=== PATIENT | male | born 1970 | race Caucasian/White ===

== ENCOUNTER 2020-07-28 15:28 | Inpatient (IN) | payer OTHER ==
[~2020-07-28] VITALS: Ht 172.7 cm; Wt 86.2 kg
--- NOTE | ~2020-07-28 | CON ---
[address] [address] CONSULTATION Name: DAVID ALBARRAN Room: [address] IN .R.#: [id number] Admission: 07/28/20 Attend Phys: Faby Deng Discharge: Date of : 70 Report #: [id number] THIS REPORT FOR: cc: FAM - No family physician/PCP FAM - No family physician/PCP Nina Oseguera ~ DOC #: [id number] CRISTIANO Cade DATE OF CONSULTATION: 07/29/2020 The patient does not have a PCP. Please note at the time of this dictation, the patient was seen and physically examined by myself. REASON FOR CONSULTATION: Acute anemia. HISTORY OF PRESENT ILLNESS: This is a 49-year-old male, who presented to the emergency room with worsening of his dyspnea on exertion and lightheadedness. He states he has noticed fatigue over the past 3 months; however, over the last week, it has gotten considerably worse and noticing that his shortness of breath and being lightheaded have increased as well. The patient did report an occasional issue with some difficulty swallowing in the past year, but he has had no nausea or vomiting. In the last couple of months, he has noted some dark stools, but he has contributed that to eating coffee beans. He has never had an EGD or a colonoscopy. He is currently complaining of just more the fatigue, but no issues with any acid reflux at this time. The patient states that his bowels move daily, soft and formed and like he had mentioned earlier, just intermittent tarry stools or melanotic stools. The patient denies any NSAID use as well. ALLERGIES: DEMEROL. MEDICATIONS FROM HOME: None. PAST MEDICAL HISTORY: Kidney stones and epididymitis. PAST SURGICAL HISTORY: Left shoulder surgery. FAMILY HISTORY: Significant for mother with colon cancer, he believes, in her 40s. SOCIAL HISTORY: Alcohol use more socially. He denies tobacco use daily and denies any illegal drug use. REVIEW OF SYSTEMS: Twelve-point review [place] [address] CONSULTATION Name: DEIONDAVID Michelle Room: [address] IN [facility]#: [id number] Admission: 07/28/20 Attend Phys: Faby Deng Discharge: Date of : 70 Report #: [id number] except what is mentioned in the HPI. PHYSICAL EXAMINATION: VITAL SIGNS: Temperature 36.7, pulse 64, respirations 16, and blood pressure 159/86. HEART: Regular rate and rhythm. LUNGS: Diminished but clear. ABDOMEN: Soft, positive bowel sounds in all 4 quadrants with no masses or tenderness noted. LABORATORY DATA: Hemoglobin on admission was 5.3. He is up to 6.5 and he has received 3 units of blood thus far. Platelets 394, BUN is 17, GFR is 59 and LFTs are completely normal. CT scan shows [id number] hiatal hernia, mildly prominent loops of small bowel, mainly on the left side, otherwise essentially normal. IMPRESSION: 1. Acute anemia. 2. Melanotic stool, intermittent. The patient has related that to eating coffee beans in the last couple of months. 3. Extreme fatigue. 4. Family history, mother, colon cancer in her 40s. PLAN: 1. EGD today with Dr. Beltran. 2. Continuous Protonix drip. 3. We will determine if above negative, he will need a colonoscopy during this hospitalization or as an outpatient. 4. Further recommendations to be made once the above has been noted. Thank you for allowing us to participate in this patient's care. Please do not hesitate to call with any questions in regards to this consult. MD RENE Escamilla/MARLEE By: [id number] Cade /isabel
[~2020-07-28 15:28] MED LIST: DOXYCYCLINE 10100 MG PO; IBUPROFEN 800800 MG PO; NORCO 5-325 TA1 EACH PO; TRAMADOL 50 MG50 MG PO; ZOFRAN ODT4 MG PO
[2020-07-28 15:35] VITALS: BP 137/63
[2020-07-28 16:16] LABS: ABSOLUTE BASOPHILS 0.1 thou/uL (0.0-0.2); ABSOLUTE LYMPHOCYTES 1.2 thou/uL (0.8-5.3); ABSOLUTE MONOCYTES 0.4 thou/uL (0.0-1.2); ABSOLUTE NEUTROPHILS 5.2 thou/uL (1.6-8.1); BASOPHILS 1.5 %; EOSINOPHILS 0.7 %; LYMPHOCYTES 17.7 %; MCH 18.8 pg (26.0-34.0); MCHC 29.1 g/dL (28.0-37.0); MCV 64.6 fL (80.0-100.0); MONOCYTES 5.6 %; MPV 5.9 fl. (7.2-11.1); NUCLEATED RBCS 0 /100WBC; PLATELET COUNT* 452 thou/uL (150-400); POLYS 74.5 %; RBC 2.82 mil/uL (4.50-6.00); RDW-CV 20.5 % (10.5-14.5)
[2020-07-28 16:17] LABS: HEMOGLOBIN 5.3 gm/dL (14.0-18.0)
[2020-07-28 16:18] LABS: HEMATOCRIT 18.2 % (42.0-52.0)
[2020-07-28 16:28] LABS: CALCIUM 8.4 mg/dL (8.5-10.1); CREATININE 1.3 mg/dL (0.6-1.3)
[2020-07-28 16:36] LABS: ALBUMIN 3.7 g/dL (3.4-5.0); MAGNESIUM 1.8 mg/dL (1.8-2.4); TOTAL BILIRUBIN 0.4 mg/dL (<0.1-1.0); TOTAL PROTEIN 7.4 g/dL (6.4-8.2)
[2020-07-28 20:08] LABS: OVALOCYTES 1+
[2020-07-28 20:09] LABS: ANISOCYTOSIS 2+; HYPOCHROMASIA 3+
[2020-07-28 20:10] LABS: PLATELET ESTIMATE INCREASED
[2020-07-28 20:11] LABS: MICROCYTES 2+
[2020-07-28 20:51] VITALS: BP 121/70
[2020-07-28 21:27] LABS: ABSOLUTE BASOPHILS 0.1 thou/uL (0.0-0.2); ABSOLUTE EOSINOPHILS 0.1 thou/uL (0.0-0.7); ABSOLUTE LYMPHOCYTES 1.8 thou/uL (0.8-5.3); ABSOLUTE MONOCYTES 0.5 thou/uL (0.0-1.2); ABSOLUTE NEUTROPHILS 3.8 thou/uL (1.6-8.1); BASOPHILS 1.1 %; EOSINOPHILS 1.2 %; HEMATOCRIT 20.5 % (42.0-52.0); LYMPHOCYTES 28.6 %; MCH 19.9 pg (26.0-34.0); MCHC 29.2 g/dL (28.0-37.0); MCV 68.3 fL (80.0-100.0); MONOCYTES 7.7 %; MPV 6.1 fl. (7.2-11.1); NUCLEATED RBCS 0 /100WBC; PLATELET COUNT* 450 thou/uL (150-400); POLYS 61.4 %; RBC 3.01 mil/uL (4.50-6.00); RDW-CV 22.9 % (10.5-14.5); WBC 6.3 thou/uL (4.0-11.0)
[2020-07-28 23:44] VITALS: BP 124/67; BP 128/69; BP 134/70
[2020-07-29 04:00] VITALS: BP 159/86
[2020-07-29 04:32] LABS: HEMATOCRIT 21.8 % (42.0-52.0); MCH 20.8 pg (26.0-34.0); MCHC 29.9 g/dL (28.0-37.0); MCV 69.5 fL (80.0-100.0); MPV 6.4 fl. (7.2-11.1); RBC 3.14 mil/uL (4.50-6.00); RDW-CV 24.3 % (10.5-14.5); WBC 5.6 thou/uL (4.0-11.0)
[2020-07-29 05:17] LABS: HEMOGLOBIN 6.5 gm/dL (14.0-18.0)
[2020-07-29 06:36] VITALS: BP 139/74
[2020-07-29 08:03] VITALS: BP 129/65; BP 139/74
[2020-07-29 09:12] VITALS: BP 129/65; BP 139/74; BP 141/81
[2020-07-29 10:10] LABS: HEMATOCRIT 24.4 % (42.0-52.0); HEMOGLOBIN 7.5 gm/dL (14.0-18.0)
--- NOTE | 2020-07-29 11:01 | EKG ---
[place] [address] ELECTROCARDIOGRAM REPORT Name: DAVID ALBARRAN Room: [address] ADM IN [facility]#: [id number] Admission: 07/28/20 Attend Phys: Shmuel Gresham Discharge: Date of : 70 Date of Service: 07/28/20 1622 Report #: [id number] THIS REPORT FOR: //name// [facility] ED Test Date: 2020-07-28 Test Time: 16:22:36 Pat Name: DAVID ALBARRAN Department: Room: [facility] Gender: M Structural Technician: FARHAN : 1970 Requested By: Rudy Hernandez Order Number: [id number] MD: Jesus Thorpe Measurements Intervals [place] Rate: 89 P: 57 [place]: 151 QRS: 5 QRSD: 106 T: 22 QT: 362 QTc: 441 Interpretive Statements Sinus rhythm Baseline wander in lead(s) II,III,aVF No previous ECG available for comparison Electronically Signed On 07-29-2020 11:01:06 CDT by Jesus Thorpe [email or web address] <ELECTRONICALLY SIGNED> By: Jesus Thorpe MD, FACC 07/29/20 1101 1622 1622 Jesus Thorpe MD, [facility] /EPI
[2020-07-29 12:00] VITALS: BP 151/80
[2020-07-29 20:00] VITALS: BP 122/72
[2020-07-30 00:08] VITALS: BP 135/68
[2020-07-30 04:52] VITALS: BP 150/80
[2020-07-30 05:13] LABS: HEMATOCRIT 25.3 % (42.0-52.0); HEMOGLOBIN 7.9 gm/dL (14.0-18.0); MCH 22.2 pg (26.0-34.0); MCHC 31.1 g/dL (28.0-37.0); MCV 71.3 fL (80.0-100.0); MPV 6.4 fl. (7.2-11.1); RBC 3.54 mil/uL (4.50-6.00); RDW-CV 25.3 % (10.5-14.5); WBC 7.1 thou/uL (4.0-11.0)
[2020-07-30 05:34] LABS: CALCIUM 8.9 mg/dL (8.5-10.1); CREATININE 0.8 mg/dL (0.6-1.3); POTASSIUM 3.9 mmol/L (3.5-5.1)
[2020-07-30 08:20] VITALS: BP 139/82
[2020-07-30] MEDS ORDERED: NICOTINE PATCH1 EAC3 TRANSDERM (15:57)
[2020-07-30] MEDS ORDERED: PROTONIX40 M2 PO (15:57)
[2020-07-30] MEDS ORDERED: IRON325 PO (15:57)
[2020-07-30 16:08] VITALS: BP 139/82
== END 2020-07-30 16:20 | disposition home or self-care (01) | DRG 368 ==
LOC: M.ERS 15:28 → M.TBA-ER 17:04 → M.2W 20:52
PROVIDERS: Emergency Medicine Emergency Medical Services; Personal Emergency Response Attendant; ADMIT Internal Medicine; ATTEND Internal Medicine
PROC: 30233N1 Transfusion of Nonautologous Red Blood Cells into Peripheral Vein, Percutaneous Approach (ICD-10-PCS; principal; 2020-07-28)
PROC: 0DB38ZX Excision of Lower Esophagus, Via Natural or Artificial Opening Endoscopic, Diagnostic (ICD-10-PCS; 2020-07-29)
PROC: 0DBN8ZZ Excision of Sigmoid Colon, Via Natural or Artificial Opening Endoscopic (ICD-10-PCS; 2020-07-30)
PROC: 0DBK8ZZ Excision of Ascending Colon, Via Natural or Artificial Opening Endoscopic (ICD-10-PCS; 2020-07-30)
DX: K21.01 Gastro-esophageal reflux disease with esophagitis, with bleeding (principal); K57.31 Diverticulosis of large intestine without perforation or abscess with bleeding; J96.00 Acute respiratory failure, unspecified whether with hypoxia or hypercapnia; D64.9 Anemia, unspecified; F17.210 Nicotine dependence, cigarettes, uncomplicated; K22.2 Esophageal obstruction; K44.9 Diaphragmatic hernia without obstruction or gangrene; Z20.822 Contact with and (suspected) exposure to COVID-19; K64.8 Other hemorrhoids; K63.5 Polyp of colon; Z88.8 Allergy status to other drugs, medicaments and biological substances; Z80.0 Family history of malignant neoplasm of digestive organs; Z87.311 Personal history of (healed) other pathological fracture; Z87.442 Personal history of urinary calculi